=== PATIENT | male | born 1965 ===

== ENCOUNTER 2019-09-14 16:13 | Emergency (ER) | payer OTHER ==
[~2019-09-14] VITALS: Ht 160 cm; Wt 72.6 kg
[2019-09-14] MEDS ORDERED: CLONIDINE HCL 0.3 MG TAB PO ONE (16:45)
[2019-09-14] MEDS ORDERED: CLONIDINE HCL 0.1 MG TAB ONE (16:52)
--- NOTE | 2019-09-14 18:23 | Diagnostic Imaging Report ---
EXAM: Scrotal Ultrasound with Duplex INDICATION: ^pain ^[id number] ^[id number] COMPARISON: None TECHNIQUE: Transverse and longitudinal images were obtained of the scrotum with grayscale imaging, color Doppler and spectral waveform analysis. FINDINGS: Right testis: Size: 3.5 x 1.6 x 2.2 cm, normal in size. Echogenicity: Normal Mass/Cysts: None Left testis: Size: 3.2 x 3.8 x 1.8 cm, normal in size. Echogenicity: Normal Mass/Cysts: 2.5 x 1.2 x 1.8 cm heterogeneous echotexture left testicular mass or collection. Epididymis: Appearance: Normal in size without increased vascularity. Mass/Cysts: None Extratesticular: Masses: None Hydrocele: Small left hydrocele. Varicocele: None Doppler: Bilateral vascular flow on color Doppler evaluation is seen. No evidence of testicular torsion. Increased left testicular vascularity. IMPRESSION: 1. No evidence of testicular torsion. 2. Increased vascularity of the left testicle, suspicious for left orchitis. Additionally, there is a 2.5 cm heterogeneous echotexture left testicular mass or collection (abscess versus hematoma). 3. Small left hydrocele. Signed by: Dr. Eric Ball MD on 09/14/2019 6:20 PM
--- NOTE | 2019-09-14 18:28 | Emergency Department Note ---
History of Present Illnes History of Present Illness Chief Complaint: Genitourinary History of Present Illness This is a 53 year old Unknown male Chief Complaint Comment PT. C/O PAIN TO LEFT TESTICLE SINCE AUGUST. STATES HE HAS BEEN ON THE SHIP AND JUST DOCKED. HIS WORK TOOK HIM TO AN URGENT CARE BUT THEY SAID HE WAS TOO SWOLLEN AND ADVISED HIM TO COME TO AN ER FOR FURTHER TESTING. PT. ALSO HYPERTENSIVE 208/103, STATES HE TAKES AMLODIPINE 10mg AND LAST TOOK IT YESTERDAY . Historian: Patient Arrival Mode: Car Onset (how long ago): month(s) (1) Location: left testicle Quality: sharp Radiation: Denies non-radiation, Denies back, Denies neck, Denies extremity, Denies abdomen, Denies periumbilical, Denies flank, Denies proximal, Denies distal, Denies other Severity: moderate Onset quality: gradual Duration (how long): month(s) (1) Timing of current episode: constant Progression: waxing and waning Chronicity: new Context: Denies recent illness, Denies recent surgery, Denies recent immobilization, Denies recent travel, Denies trauma/injury, Denies new medications, Denies hx of DVT/PE, Denies non-compliance w/ medications, Denies other Relieving factors: none Exacerbating factors: none Associated symptoms: Reports denies other symptoms Treatments prior to arrival: none Past Medical/Family History Physician Review I have reviewed the patient's past medical and family history. Any updates have been documented here. Past Medical History Recent Fever: No Clinical Suspicion of Infectio: No New/Unexplained Change in Ment: No Past Medical History: Hypertension, Diabetes Past Surgical History: None Social History Smoking Cessation: Never Smoker Alcohol Use: None Any Illegal Drug Use: No Physically hurt or threatened: No Other Any Pre-Existing Lines (PICC,: No Review of Systems Review of Systems Constitutional: Reports no symptoms EENTM: Reports no symptoms Cardiovascular: Reports no symptoms Respiratory: Reports no symptoms Gastrointestinal: Reports no symptoms Genitourinary: Reports as per HPI Musculoskeletal: Reports no symptoms Integumentary: Reports no symptoms Neurological: Reports no symptoms Psychological: Reports no symptoms Endocrine: Reports no symptoms Hematological/Lymphatic: Reports no symptoms Physical Exam Related Data Triage Vital Signs Vital Signs Date Time Temp Pulse Resp B/P (MAP) Pulse Ox O2 Delivery O2 Flow Rate FiO2 09/14/19 16:32 98.1 105 16 208/103 98 Room Air Vital signs reviewed: Yes Physical Exam CONSTITUTIONAL Constitutional: Present well-developed, Present well-nourished HENT HENT: Present normocephalic, Present atraumatic, Present oropharynx clear/moist, Present nose normal HENT L/R: Present left ext ear normal, Present right ext ear normal EYES Eyes: Reports PERRL, Reports conjunctivae normal NECK Neck: Present ROM normal PULMONARY Pulmonary: Present effort normal, Present breath sounds normal CARDIOVASCULAR Cardiovascular: Present regular rhythm, Present heart sounds normal, Present capillary refill normal, Present normal rate GASTROINTESTINAL Abdominal: Present soft, Present nontender, Present bowel sounds normal GENITOURINARY Genitourinary: Present other (left testicle tenderness) SKIN Skin: Present warm, Present dry MUSCULOSKELETAL Musculoskeletal: Present ROM normal NEUROLOGICAL Neurological: Present alert, Present oriented x 3, Present no gross motor or sensory deficits PSYCHOLOGICAL Psychological: Present mood/affect normal, Present judgement normal Results Laboratory Lab results reviewed: Yes Imaging Imaging results reviewed: Yes Assessment & Plan Medical Decision Making MDM epididymitis uti hydrocele Reassessment Reassessment time: 18:30 Reassessment better Assessment & Plan Final Impression: (1) Epididymitis (2) Epididymitis, left (3) UTI (urinary tract infection) (4) Uncontrolled hypertension Depart Disposition: HOME, SELF-CARE Last Vital Signs Date Time Temp Pulse Resp B/P (MAP) Pulse Ox O2 Delivery O2 Flow Rate FiO2 09/14/19 18:25 87 16 125/83 100 09/14/19 16:32 98.1 Room Air Medications in the ED Clonidine HCl 0.3 mg ONCE ONCE PO Last administered on 09/14/19at 16:50; Admin Dose 0.3 MG; Start 09/14/19 at 16:45; Stop 09/14/19 at 16:46; Status UNV Clonidine HCl 0.3 mg STK-MED ONCE .ROUTE ; Start 09/14/19 at 16:52; Stop 09/14/19 at 16:47; Status CHRIS OAKES MD Sep 14, 2019 18:28
[2019-09-14] MEDS ORDERED: CIPRO500 MG PO (18:34)
[2019-09-14] MEDS ORDERED: NAPROSYN500 MG PO (18:34)
[2019-09-14] MEDS ORDERED: AUGMENTIN 500-1 EACH PO (18:34)
[2019-09-14] MEDS ORDERED: NORVASC10 MG PO (18:34)
== END 2019-09-14 18:39 | disposition home or self-care (01) ==
LOC: FSED 16:13
DX: N45.1 Epididymitis (principal); N39.0 Urinary tract infection, site not specified; I10 Essential (primary) hypertension
CPT/HCPCS: 76870; 81003; 99283